=== PATIENT | male | born 1955 | race American Indian/Alaskan Native ===

== ENCOUNTER 2017-11-18 08:02 | Emergency (ER) | payer MEDICAID, MEDICARE ==
[2017-11-18 08:17] VITALS: BP 148/101
[2017-11-18] MEDS ORDERED: TORADOL IM ONE (09:11)
[2017-11-18] MEDS ORDERED: FLEXERIL PO ONE (09:11)
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
[2017-11-18] MEDS ORDERED: NORCO 5/325 PO ONE (09:21)
== END 2017-11-18 09:31 | disposition home or self-care (01) ==
LOC: ED 08:02
DX: M79.642 Pain in left hand (principal); M79.641 Pain in right hand; M25.561 Pain in right knee; M25.562 Pain in left knee; G89.29 Other chronic pain; I10 Essential (primary) hypertension; F20.9 Schizophrenia, unspecified; F17.200 Nicotine dependence, unspecified, uncomplicated
CPT/HCPCS: 99282; J1885